=== PATIENT | male | born 1995 | race Caucasian/White ===

== ENCOUNTER 2025-08-07 10:14 | Emergency (ER) | payer OTHER ==
[~2025-08-07] VITALS: Ht 185.4 cm; Wt 83.9 kg
[2025-08-07 11:05] VITALS: BP 128/99; TEMP 98.1; O2SAT 99
== END 2025-08-07 11:06 | disposition home or self-care (01) ==
LOC: ER 10:37
DX: K62.5 Hemorrhage of anus and rectum (principal)